=== PATIENT | female | born 1995 | race Caucasian/White ===

== ENCOUNTER 2017-12-17 18:57 | Emergency (ER) | payer OTHER ==
[~2017-12-17] VITALS: Ht 167.6 cm; Wt 55.2 kg
[2017-12-17 21:20] VITALS: BP 139/96
== END 2017-12-17 21:46 | disposition home or self-care (01) ==
LOC: EME 18:57
DX: M95.8 Other specified acquired deformities of musculoskeletal system (principal); F17.200 Nicotine dependence, unspecified, uncomplicated
CPT/HCPCS: 99281; 99283